=== PATIENT | male | born 1970 | race Caucasian/White ===

== ENCOUNTER 2021-09-27 10:01 | Emergency (ER) | payer BC, SELFPAY ==
[2021-09-27 10:13] VITALS: BP 152/99; PULSE 91; RESP 16; TEMP 36.9; O2SAT 100
--- NOTE | 2021-09-27 10:33 | ED.URI ---
HPI - URI/Sore Throat General Chief Complaint: Upper Respiratory Infection Stated Complaint: Sore throat Time Seen by Provider: 09/27/21 10:33 Source: patient and RN notes reviewed Mode of arrival: ambulatory Limitations: no limitations History of Present Illness HPI Narrative: Jaswinder is a 50-year-old male patient who ambulated into the [facility]. Patient states he had a sore throat for 1-1/2 weeks. Patient states has been taking Tylenol and using whiskey gargles and it will not go away. Patient denies any fever or sweats. Patient was treated by an ENT in the spring for similar symptoms was diagnosed with allergies. He was treated with Zyrtec and Flonase MD elicited complaint: sore throat Related Data Allergies Allergy/AdvReac Type Severity Reaction Status Date / Time No Known Allergies Allergy Verified 09/27/21 11:05 Review of Systems Review of Systems: CONSTITUTIONAL: Denies body aches, fever, chills, or sweats. EYES: Denies visual changes, redness, or discharge. ENT: Denies rhinorrhea, congestion,+ sore throat, - otalgia. CARDIOVASCULAR: Denies chest pain, palpitations, or edema. RESPIRATORY: Denies cough or dyspnea. GASTROINTESTINAL: Denies abdominal pain, nausea, vomiting, or diarrhea. GENITOURINARY: Denies dysuria or hematuria. SKIN: Denies rash, itching, or wounds. MUSCULOSKELETAL: Denies back pain, joint pain, or myalgia. NEUROLOGIC: Denies headache, numbness, tingling, or weakness. PSYCH: Denies depression or anxiety. All systems reviewed & are unremarkable except as noted in HPI and below PMFSH Comments At time of signature, I have reviewed and agree with nursing past medical, surgical, social and family history unless otherwise noted. Please see nursing chart for further information. There is no relevant family history pertinent to the presenting complaint Exam Narrative: GENERAL: Well-appearing, well-nourished, and in no acute distress. HEAD: Normocephalic, atraumatic. EYES: EOMI. No redness or drainage. Conjunctivae normal. ENT: Mucous membranes pink and moist. Nares clear. No rhinorrhea. TMs normal bilaterally. Posterior pharynx is erythemic with mild edema. No exudate is noted. Moderate postnasal drainage is noted throat normal. Uvula midline. Allergic shiners noted bilaterally NECK: Normal AROM. Supple. Positive submental lymphadenopathy. CHEST: No respiratory distress. Clear to auscultation. HEART: Regular rate and rhythm. No murmur appreciated. Normal peripheral pulses. ABDOMEN: Soft, nontender, nondistended, normal active bowel sounds. MUSCULOSKELETAL: No bony tenderness. EXTREMITIES: Normal range of motion. No edema. SKIN: Warm, dry, no rash. Capillary refill normal. Normal skin turgor. NEURO: No focal deficits. Alert and oriented x3. Gait steady. PSYCH: Normal affect. No signs of depression or anxiety. Course Vital Signs Vital signs: Vital Signs Temperature 36.9 C 09/27/21 10:13 Pulse Rate 91 09/27/21 10:13 Respiratory Rate 16 09/27/21 10:13 Blood Pressure 152/99 H 09/27/21 10:13 Pulse Oximetry 100 09/27/21 10:13 Temperature 36.9 C 09/27/21 10:13 Pulse Rate 91 09/27/21 10:13 Respiratory Rate 16 09/27/21 10:13 Blood Pressure 152/99 H 09/27/21 10:13 Pulse Oximetry 100 09/27/21 10:13 Reviewed. Pt has been instructed to follow up with his PCP regarding his elevated blood pressure today. MDM - URI/Sore Throat MDM Narrative Medical decision making narrative: Rapid strep ordered and is negative. culture will be sent to lab. Patient will be treated for allergies. Patient will resume his his [id number] allergy medicines as prescribed Differential Diagnosis Differential diagnosis: Likely upper respiratory infection, otitis media, sinusitis, influenza and pharyngitis Medical Records Attestation: I reviewed the patient's medical records. Lab Data Attestation: I reviewed the patient's lab results. Labs: Strep Screen Pres
== END 2021-09-27 11:13 | disposition home or self-care (01) ==
PROVIDERS: Emergency Provider Nurse Practitioner Family
DX: J30.2 Other seasonal allergic rhinitis (principal)
CPT/HCPCS: 87081; 87880; 99203; G0463

== ENCOUNTER 2021-11-21 12:41 | Emergency (ER) | payer BC, SELFPAY ==
--- NOTE | 2021-11-21 12:47 | ED.SKABFB ---
HPI - Skin/Abscess/Foreign Bdy General Chief complaint: Skin/Abscess/Foreign Body Stated complaint: Rash Time Seen by Provider: 11/21/21 12:45 Source: patient and RN notes reviewed History of Present Illness HPI narrative: Patient is a 51-year-old male who presents the urgent care with complaints of a rash to the arms, torso, back of the neck and chin. Patient states he noticed it a couple days ago and seems to gotten worse. States that the area on the chin is slightly painful however the rash does not itch and is not painful. Patient denies any fever, chills, nausea or vomiting. Patient states that he has had a sore throat for several months and has followed up with her his doctor which has been treating him for GERD. Patient states that he did have a strep test which was negative. Patient states that the medication has not seemed to help the sore throat. No other acute complaints. No acute distress noted. Patient aware the plan of care. Some parts of this dictation were generated by voice recognition software and may contain typographical and/or grammatical inaccuracies. Related Data Home Medications Medication Instructions Recorded Confirmed atorvastatin 10 mg PO DAILY 11/21/21 11/21/21 famotidine 20 mg PO DAILY 11/21/21 11/21/21 losartan 25 mg PO DAILY 11/21/21 11/21/21 Allergies Allergy/AdvReac Type Severity Reaction Status Date / Time No Known Allergies Allergy Verified 11/21/21 12:52 Review of Systems Review of Systems: CONSTITUTIONAL: Denies fever, chills, or sweats. EYES: Denies visual changes, redness, or discharge. ENT: Denies rhinorrhea, congestion, otalgia. Reports of sore throat CARDIOVASCULAR: Denies chest pain, palpitations, or edema. RESPIRATORY: Denies cough or dyspnea. GASTROINTESTINAL: Denies abdominal pain, nausea, vomiting, or diarrhea. GENITOURINARY: Denies dysuria or hematuria. SKIN: Reports a painful rash to the chin and nonitchy/painful rash to the torso, bilateral arms and back of the neck MUSCULOSKELETAL: Denies back pain, joint pain, or myalgia. NEUROLOGIC: Denies headache, numbness, or weakness. All other systems reviewed are negative, except as documented in HPI. PMFSH Comments At the time of my signature, I reviewed and agree with the nursing past medical, surgical, social, and family history. There is no relevant family history pertinent to the patient complaint. Exam Narrative: GENERAL: This is a well-nourished, well-developed patient, in no apparent distress. HEAD: normocephalic, atraumatic. EYES: PERRL. Sclera clear/white. Vision is grossly intact. EARS: External ears normal NOSE: External nose normal with no obvious nasal discharge, nares without redness, no rhinorrhea. THROAT: Mucous membranes moist. Moderate erythema to the posterior pharynx with mild to moderate bilateral erythema/edema with moderate postnasal drainage NECK: Neck supple, non-tender mild bilateral submandibular lymphadenopathy CARDIOVASCULAR: Regular rate and rhythm SKIN: Raised vesicular/pustular dermatitis noted to the chin consistent with impetigo. Papular scattered raised erythemic nonpruritic dermatitis noted to the antecubital fossa's bilaterally, posterior neck, and right torso NEURO: awake, alert, and oriented to person, place and time. There were no obvious focal neurologic abnormalities. EXTREMITIES: No clubbing, cyanosis, or edema. Course Course Level of Care: Express Care Visit Vital Signs Vital signs: Vital Signs Temperature 98.9 F 11/21/21 12:51 Pulse Rate 84 11/21/21 12:51 Respiratory Rate 16 11/21/21 12:51 Blood Pressure 166/95 H 11/21/21 12:51 Pulse Oximetry 99 11/21/21 12:51 Temperature 98.9 F 11/21/21 12:51 Pulse Rate 84 11/21/21 12:51 Respiratory Rate 16 11/21/21 12:51 Blood Pressure 166/95 H 11/21/21 12:51 Pulse Oximetry 99 11/21/21 12:51 Reviewed-patient is informed that they may have pre-hypertension or hypertension based on a blood pressure alicia
[2021-11-21 12:51] VITALS: BP 166/95; PULSE 84; RESP 16; TEMP 37.2; O2SAT 99
== END 2021-11-21 13:15 | disposition home or self-care (01) ==
PROVIDERS: Emergency Provider Nurse Practitioner Family
DX: L01.00 Impetigo, unspecified (principal); L25.9 Unspecified contact dermatitis, unspecified cause; E78.00 Pure hypercholesterolemia, unspecified; I10 Essential (primary) hypertension; K21.9 Gastro-esophageal reflux disease without esophagitis
CPT/HCPCS: 36416; 86308; 99213; G0463